=== PATIENT | female | born 1975 | race Caucasian/White ===

== ENCOUNTER 2018-04-21 14:32 | Outpatient (CLI) | payer OTHER ==
--- NOTE | 2018-04-21 16:59 | Ultrasound Report ---
Reason: LEFT LOWER QUADRANT PAIN Procedure Date: 04/21/2018 Accession Number: [id number] Procedure: US - Pelvic w/Transvaginal CPT Code: FULL RESULT: EXAM: PELVIC ULTRASOUND EXAM DATE: 04/21/2018 02:53 PM. CLINICAL HISTORY: LEFT LOWER QUADRANT PAIN. COMPARISON: CT abdomen and pelvis 11/05/2013, OB ultrasound 03/08/2008 TECHNIQUE: Realtime transabdominal pelvic scan performed to identify the uterus and adnexa and as an overview of other pelvic structures, followed by transvaginal scan to provide greater detail of the uterus and adnexa, with static image documentation. FINDINGS: Uterus: 8.8 x 4.3 x 3.6 cm, volume 71 cc. Anteverted position. Normal overall size and heterogeneity in echotexture. Masses: Cannot exclude small sub-centimeter fibroids. Endometrium: 4.7 mm. Normal. Cervix: Unremarkable. Right Ovary: 1.6 x 2.1 x 0.9 cm, volume 1.6 cc. Normal echotexture and blood flow. Left Ovary: 2.4 x 1.6 x 1.1 cm, volume 2.2 cc. Normal echotexture and blood flow. Free Fluid: None. Other: None. IMPRESSION: Heterogeneous uterine echotexture. Normal endometrial echo thickness. No obvious explanation for left lower quadrant pain identified. RADIA
== END 2018-04-21 14:33 | disposition home or self-care (01) ==
LOC: DI 14:32
PROVIDERS: ATTEND Obstetrics & Gynecology
DX: R10.32 Left lower quadrant pain (principal)
CPT/HCPCS: 76830; 76856

== ENCOUNTER 2019-08-02 10:19 | Outpatient (CLI) | payer BC | END 2019-08-02 23:59 | disposition home or self-care (01) | LOC: LAB.R 10:19 | PROVIDERS: ATTEND Nurse Practitioner Obstetrics & Gynecology | DX: N39.0 Urinary tract infection, site not specified (principal) | CPT/HCPCS: 87086 ==

== ENCOUNTER 2019-08-18 13:53 | Outpatient (CLI) | payer BC | END 2019-08-18 23:59 | disposition home or self-care (01) | LOC: LAB.R 13:53 | PROVIDERS: ATTEND Obstetrics & Gynecology | DX: N39.0 Urinary tract infection, site not specified (principal) | CPT/HCPCS: 87077; 87086; 87181 ==

== ENCOUNTER 2019-09-08 09:17 | Outpatient (CLI) | payer BC, OTHER ==
--- NOTE | 2019-09-12 12:19 | Mammography Report ---
Reason: ROUTINE MAMMO Procedure Date: 09/08/2019 Accession Number: [id number] / [id number] Procedure: [facility] - Screening Mammo Impl w/Valdo CPT Code: Final Report FULL RESULT: EXAM: Screening Mammo Impl w/Valdo DATE: 09/08/2019 9:51 AM CLINICAL HISTORY: Screening encounter. History of bilateral saline implants. TECHNIQUE: (B) - Bilateral CC, laterally exaggerated CC, MLO views were obtained. Images are obtained in standard and implant displaced fashion. COMPARISON: 12/13/2015. PARENCHYMAL PATTERN: (D) - The breast(s) demonstrate(s) heterogeneously dense fibroglandular parenchyma. FINDINGS: Bilateral retropectoral breast implants are again demonstrated. There are no suspicious masses, calcifications, or areas of distortion. IMPRESSION: Benign findings. BI-RADS category 2. RECOMMENDATION: (ANNUAL) - Recommend routine annual screening mammography. BI-RADS CATEGORY: (2) - Benign Findings. STANDARD QUALIFYING STATEMENTS: 1. This examination was not reviewed with the aid of Computer-Aided Detection (CAD). 2. A negative or benign imaging report should not preclude biopsy if clinically suspicious findings are present. 3. Dense breasts may obscure an underlying neoplasm. 4. This examination was reviewed with the aid of 3D breast imaging (tomosynthesis).
== END 2019-09-08 09:18 | disposition home or self-care (01) ==
LOC: DI 09:17
PROVIDERS: ATTEND Nurse Practitioner Obstetrics & Gynecology
DX: Z12.31 Encounter for screening mammogram for malignant neoplasm of breast (principal); Z98.82 Breast implant status
CPT/HCPCS: 77063; 77067

== ENCOUNTER 2020-11-19 10:14 | Outpatient (CLI) | payer BC ==
[2020-11-19 10:44] LABS: CHOL/HDL RATIO 2.7 (<4.4); CHOLESTEROL 226 mg/dL; HDL CHOLESTEROL 84 mg/dL; LDL CHOLESTEROL,CALCULATED 92 mg/dL; LDL/HDL RATIO 1.1 (<4.4); TRIGLYCERIDES 252 mg/dL; VLDL CHOLESTEROL 50 mg/dL
[2020-11-19 12:45] LABS: ESTIMATED AVERAGE GLUCOSE 91 mg/dL (70-100); HEMOGLOBIN A1c% 4.8 % (4.27-6.07)
== END 2020-11-19 10:15 | disposition home or self-care (01) ==
LOC: LAB 10:14
PROVIDERS: ATTEND Nurse Practitioner Obstetrics & Gynecology
DX: Z00.00 Encounter for general adult medical examination without abnormal findings (principal)
CPT/HCPCS: 36415; 80061; 83036; 83721; 84443